=== PATIENT | female | born 1960 | race Caucasian/White ===

== ENCOUNTER 2024-08-13 10:49 | Emergency (ER) | payer MEDICARE, MEDICAID ==
[~2024-08-13] VITALS: Ht 162.6 cm; Wt 50.0 kg
[2024-08-13 10:57] VITALS: O2SAT 98
[2024-08-13 11:03] VITALS: BP 138/85; PULSE 84; RESP 18; TEMP 98.2; O2SAT 98
[2024-08-13 11:37] LABS: BASOPHILS % 0.7 % (0.0-2.0); DIFFERENTIAL COMMENT 0; EOSINOPHILS % 0.9 % (0.0-5.0); HEMATOCRIT. 39.7 % (36.0-48.0); HEMOGLOBIN. 14.1 g/dL (12.0-16.0); LYMPHOCYTES % 16.9 % (20.0-50.0); MEAN CORPUSCULAR HEMOGLOBIN 37.3 pg (28.0-32.0); MEAN CORPUSCULAR HGB CONC 35.5 g/dL (31.0-37.0); MEAN CORPUSCULAR VOLUME 104.9 fL (81.0-99.0); MEAN PLATELET VOLUME 7.1 fl (7.4-10.4); MONOCYTES % 8.6 % (2.0-8.0); NEUTROPHILS % 72.9 % (40.0-76.0); PLATELET 324 x1000/uL (130-400); RED BLOOD CELL COUNT 3.78 mill/uL (4.2-5.4); RED CELL DISTRIBUTION WIDTH 12.8 % (11.6-14.6); WHITE BLOOD COUNT 8.8 x1000/uL (4.5-11.0)
[2024-08-13 11:47] LABS: CARBON DIOXIDE 27 mEq/L (21-32); CHLORIDE 102 mEq/L (98-107); POTASSIUM 3.9 mEq/L (3.5-5.1); SODIUM 137 mEq/L (136-145)
[2024-08-13 11:48] LABS: CALCIUM 9.7 mg/dL (8.7-10.4)
[2024-08-13 11:49] LABS: INR 0.9; PROTHROMBIN TIME 10.3 sec (9.6-11.0)
[2024-08-13 11:53] LABS: CREATININE 0.6 mg/dL (0.6-1.0); GLUCOSE 88 mg/dL (70-105); UREA NITROGEN BLOOD 8 mg/dL (9-23)
[2024-08-13 11:56] LABS: TROPONIN I HIGH SENSITIVITY < 4 ng/L (3.0-34)
[2024-08-13] MEDS ORDERED: POLY17PO3 MT (12:18)
[2024-08-13] MEDS ORDERED: DOCU-138 MT (12:18)
== END 2024-08-13 12:22 | disposition home or self-care (01) ==
LOC: ER 10:49
DX: K59.00 Constipation, unspecified (principal); I49.9 Cardiac arrhythmia, unspecified
CPT/HCPCS: 36415; 80048; 84484; 85025; 86850; 86900; 93005; 99284